=== PATIENT | male | born 1975 | race Caucasian/White ===

== ENCOUNTER 2025-01-27 17:46 | Inpatient (IN) | payer SELFPAY ==
[~2025-01-27] VITALS: Ht 165.1 cm; Wt 112.5 kg
[~2025-01-27 17:46] MED LIST: ATARAX25 MG PO; KEFLEX500 MG PO; LIDEX0.05% T
[2025-01-27 18:13] VITALS: BP 106/66
[2025-01-27] MEDS ORDERED: LISINOPRIL20 MG PO (18:51)
[2025-01-27] MEDS ORDERED: FENOFIBRATE145 M1 PO (18:51)
[2025-01-27] MEDS ORDERED: ROSUVASTATIN CA20 MG PO (18:51)
[2025-01-27] MEDS ORDERED: COQ1050 MG PO (18:52)
[2025-01-27] MEDS ORDERED: Ondansetron Hydrochloride 4 MG/2 ML VIAL IV ONE (18:55)
[2025-01-27] MEDS ORDERED: SODIUM CHLORIDE 0.9% 10 ML VIAL IV ONE (19:00)
[2025-01-27] MEDS ORDERED: SODIUM CHLORIDE 0.9% 1,000 ML IV ONE ×2 (19:05→19:24)
[2025-01-27 19:23] LABS: BASO # 0.0 10*3/uL (0.0-0.1); BASO % 0.2 % (0.0-1.0); EOS # 0.0 10*3/uL (0.0-0.4); EOS % 0.0 % (1.0-4.0); MEAN CELL VOLUME 88.0 fl (80.0-94.0); MEAN CORPUSCULAR HGB 29.4 pg (27.0-31.0); MEAN PLATELET VOLUME 12.5 fl (9.6-12.3); MONO # 1.2 10*3/uL (0.1-1.0); MONO % 5.8 % (3.0-9.0); NEUT # 17.7 10*3/uL (2.3-7.9); NEUT % 88.3 % (47.0-73.0); NUCLEATED RED BLOOD CELL 0.0 % (0.0-0.0); NUCLEATED RED BLOOD CELL 0.0 10*3/uL (0.0-0.0); PLATELET COUNT AUTOMATED 217 10*3/uL (130-400); RED CELL DISTRI WIDTH 13.8 % (0-14.5)
[2025-01-27 19:34] VITALS: BP 121/71
[2025-01-27 19:34] LABS: BUN 13 mg/dl (9-23)
[2025-01-27] MEDS ORDERED: Piperacillin Sodium/Tazobact 4.5 GM in SODIUM CHLORIDE 0.9% 100 ML IV ONE (20:58)
[2025-01-27] MEDS ORDERED: SODIUM CHLORIDE 0.9% 1,000 ML IV SCH (22:15)
[2025-01-27 23:29] VITALS: BP 124/60
[2025-01-28 00:08] LABS: ACT PARTIAL THROMBO TIME 29.9 SECONDS (20.0-32.1)
[2025-01-28 06:27] LABS: BASO # 0.0 10*3/uL (0.0-0.1); BASO % 0.2 % (0.0-1.0); EOS # 0.0 10*3/uL (0.0-0.4); EOS % 0.0 % (1.0-4.0); MEAN CELL VOLUME 88.8 fl (80.0-94.0); MEAN CORPUSCULAR HGB 29.4 pg (27.0-31.0); MEAN PLATELET VOLUME 12.3 fl (9.6-12.3); MONO # 1.4 10*3/uL (0.1-1.0); MONO % 6.7 % (3.0-9.0); NEUT # 17.4 10*3/uL (2.3-7.9); NEUT % 84.4 % (47.0-73.0); NUCLEATED RED BLOOD CELL 0.0 % (0.0-0.0); NUCLEATED RED BLOOD CELL 0.0 10*3/uL (0.0-0.0); PLATELET COUNT AUTOMATED 204 10*3/uL (130-400); RED CELL DISTRI WIDTH 14.2 % (0-14.5)
[2025-01-28 06:37] LABS: BUN 14 mg/dl (9-23); FREE T4 1.41 ng/dl (0.89-1.76); LDL CHOLESTEROL 61 mg/dL (9-159); SGPT/ALT 15 U/L (5-49)
[2025-01-28 08:00] VITALS: BP 100/62
[2025-01-28] MEDS ORDERED: ACETAMINOPHEN 80 ML IV ONE (08:05)
[2025-01-28 08:11] LABS: VITAMIN D, 25-HYDROXY 11.4 ng/mL (30-100)
[2025-01-28 12:00] VITALS: BP 114/52
[2025-01-28] MEDS ORDERED: POTASSIUM CL/0.9% SODIUM CL 1,000 ML IV SCH (13:40)
[2025-01-28 15:32] LABS: BILIRUBIN Negative (Negative); BLOOD 1+ (Negative); CLARITY Clear (Clear); COLOR Dark Yellow (Yellow); KETONE Negative (Negative); LEUKO ESTERASE Negative (Negative); NITRITE Negative (Negative); PH 5.0 (4.5-8.0); SPECIFIC GRAVITY >= 1.030 (1.001-1.030); UROBILINOGEN 2.0 E.U./dl (0.0-1.0)
[2025-01-28 15:44] LABS: BACTERIA 1+; MUCOUS 1+; WBC 0-2 wbc/hpf (0-5)
[2025-01-28 16:00] VITALS: BP 120/74
[2025-01-28] MEDS ORDERED: ACETAMINOPHEN 60 ML IV SCH (18:00)
[2025-01-28 20:00] VITALS: BP 117/63
[2025-01-29] VITALS: BP 110/66
[2025-01-29 07:35] LABS: BASO # 0.0 10*3/uL (0.0-0.1); BASO % 0.2 % (0.0-1.0); EOS % 0.8 % (1.0-4.0); NUCLEATED RED BLOOD CELL 0.0 % (0.0-0.0); NUCLEATED RED BLOOD CELL 0.0 10*3/uL (0.0-0.0)
[2025-01-29 07:43] LABS: EOS # 0.1 10*3/uL (0.0-0.4); MEAN CORPUSCULAR HGB 29.2 pg (27.0-31.0); MEAN PLATELET VOLUME 12.7 fl (9.6-12.3); MONO # 0.8 10*3/uL (0.1-1.0); MONO % 5.8 % (3.0-9.0); NEUT # 10.8 10*3/uL (2.3-7.9); NEUT % 81.9 % (47.0-73.0); PLATELET COUNT AUTOMATED 178 10*3/uL (130-400); RED CELL DISTRI WIDTH 14.3 % (0-14.5)
[2025-01-29 07:47] LABS: MEAN CELL VOLUME 91.4 fl (80.0-94.0)
[2025-01-29 08:00] VITALS: BP 116/61
[2025-01-29 08:09] LABS: BUN 13 mg/dl (9-23); SGPT/ALT 15 U/L (5-49)
[2025-01-29 12:00] VITALS: BP 120/61
[2025-01-29 16:00] VITALS: BP 126/70
[2025-01-29 20:00] VITALS: BP 120/69
[2025-01-30] VITALS: BP 124/76
[2025-01-30 06:13] LABS: BUN 11 mg/dl (9-23)
[2025-01-30 06:38] LABS: BASO # 0.0 10*3/uL (0.0-0.1); BASO % 0.3 % (0.0-1.0); EOS # 0.2 10*3/uL (0.0-0.4); EOS % 2.1 % (1.0-4.0); MEAN CELL VOLUME 90.6 fl (80.0-94.0); MEAN CORPUSCULAR HGB 29.3 pg (27.0-31.0); MEAN PLATELET VOLUME 12.3 fl (9.6-12.3); MONO # 0.6 10*3/uL (0.1-1.0); MONO % 5.3 % (3.0-9.0); NEUT # 7.7 10*3/uL (2.3-7.9); NEUT % 73.8 % (47.0-73.0); NUCLEATED RED BLOOD CELL 0.0 % (0.0-0.0); NUCLEATED RED BLOOD CELL 0.0 10*3/uL (0.0-0.0); PLATELET COUNT AUTOMATED 214 10*3/uL (130-400); RED CELL DISTRI WIDTH 14.3 % (0-14.5)
[2025-01-30 08:00] VITALS: BP 110/62
[2025-01-30] MEDS ORDERED: Cholecalciferol 5,000 IU CAP (125 MCG) PO SCH (10:00)
[2025-01-30] MEDS ORDERED: VITAMIN D3125 MC1 PO (11:28)
[2025-01-30] MEDS ORDERED: AMOX-CLAV 875-1 EACH PO (11:28)
[2025-01-30] MEDS ORDERED: FLORASTOR250 MG PO (11:29)
== END 2025-01-30 12:55 | disposition home or self-care (01) | DRG 872 ==
LOC: ED 17:46 → 5E 21:17 → EDHOLD 21:17 → 5E 22:35
PROVIDERS: Student in an Organized Health Care Education/Training Program; Surgery; ADMIT Internal Medicine; ATTEND Internal Medicine
DX: A41.9 Sepsis, unspecified organism (principal); K57.20 Diverticulitis of large intestine with perforation and abscess without bleeding; E87.1 Hypo-osmolality and hyponatremia; E44.1 Mild protein-calorie malnutrition; Z68.41 Body mass index [BMI] 40.0-44.9, adult; D64.9 Anemia, unspecified; I10 Essential (primary) hypertension; E78.5 Hyperlipidemia, unspecified; R73.9 Hyperglycemia, unspecified; E66.01 Morbid (severe) obesity due to excess calories; E74.39 Other disorders of intestinal carbohydrate absorption; K76.0 Fatty (change of) liver, not elsewhere classified; E87.8 Other disorders of electrolyte and fluid balance, not elsewhere classified; E55.9 Vitamin D deficiency, unspecified; Z80.42 Family history of malignant neoplasm of prostate; Z79.899 Other long term (current) drug therapy

== ENCOUNTER → 2025-02-03 | Outpatient (CLI) | payer SELFPAY ==
[~2025-02-03] MED LIST changes: +AMOX-CLAV 875-1 EACH PO; +COQ1050 MG PO; +FENOFIBRATE145 M1 PO; +FLORASTOR250 MG PO; +LISINOPRIL20 MG PO; +ROSUVASTATIN CA20 MG PO; +VITAMIN D3125 MC1 PO
[2025-02-03 08:29] LABS: MEAN CELL VOLUME 90.8 fl (80.0-94.0); MEAN CORPUSCULAR HGB 29.2 pg (27.0-31.0); MEAN PLATELET VOLUME 11.0 fl (9.6-12.3); NUCLEATED RED BLOOD CELL 0.0 % (0.0-0.0); NUCLEATED RED BLOOD CELL 0.0 10*3/uL (0.0-0.0); PLATELET COUNT AUTOMATED 352 10*3/uL (130-400); RED CELL DISTRI WIDTH 13.9 % (0-14.5)
[2025-02-03 08:32] LABS: MANUAL DIFF REFLEX YES
[2025-02-03 08:48] LABS: PLATELET SUFFICIENCY NORMAL (NORMAL)
[2025-02-03 08:57] LABS: BUN 11 mg/dl (9-23); SGPT/ALT 31 U/L (5-49)
== END | disposition home or self-care (01) ==
LOC: LAB 07:37
PROVIDERS: ATTEND Internal Medicine
DX: K57.20 Diverticulitis of large intestine with perforation and abscess without bleeding (principal); R10.9 Unspecified abdominal pain